=== PATIENT | female | born 1970 | race Caucasian/White ===

== ENCOUNTER 2016-07-18 21:52 | Observation (INO) | payer OTHER ==
[~2016-07-18] VITALS: Ht 170.2 cm; Wt 71.2 kg
[2016-07-18 23:31] LABS: HEMATOCRIT 38.3 % (36.0-46.0); MCH 28.2 PG (29.0-34.0); MCHC 32.1 G/DL (30.0-36.0); MCV 87.8 FL (83-99); MEAN PLAT.VOLUME 8.3 uM^3 (9.5-12.4); PLATELET COUNT 382 K/uL (156-360); RBC DIS.WIDTH-CV 12.6 % (11.8-14.6); RBC DIS.WIDTH-SD 40.7 % (39-53); RED BLOOD COUNT 4.36 M/uL (3.80-5.20); WHITE BLOOD COUNT 5.9 K/uL (4.1-10.2)
[2016-07-18 23:50] LABS: TROP-I INTERPRETATION NEGATIVE; TROPONIN-I < 0.01 ng/mL (0.0-0.30)
[2016-07-19] MEDS ORDERED: TRILEPTAL300 MG PO (00:48)
[2016-07-19] MEDS ORDERED: GABAPENTIN300 MG PO (00:48)
[2016-07-19] MEDS ORDERED: TRILEPTAL150 MG PO (00:49)
[2016-07-19] MEDS ORDERED: ADDERALL20 MG PO ×2 (00:49)
[2016-07-19] MEDS ORDERED: HYDROCORTISONE5 MG PO ×2 (00:49)
[2016-07-19] MEDS ORDERED: FORFIVO XL450 MG PO (00:49)
[2016-07-19] MEDS ORDERED: MELATONIN5 M1 PO (00:50)
[2016-07-19] MEDS ORDERED: COMBIVENT RESPIM4 GM IH (00:50)
[2016-07-19] MEDS ORDERED: SYMBICORT60 INHALAT IH (00:50)
[2016-07-19] MEDS ORDERED: ROBAXIN750 MG PO (00:51)
[2016-07-19] MEDS ORDERED: HYDROXYZINE HCL50 MG PO (00:51)
[2016-07-19] MEDS ORDERED: PROVENTIL HFA6.7 GM IH (00:51)
[2016-07-19 02:49] VITALS: BP 127/70
[2016-07-19 08:02] VITALS: BP 131/62
[2016-07-19 11:07] LABS: TROP-I INTERPRETATION NEGATIVE; TROPONIN-I < 0.01 ng/mL (0.0-0.30)
[2016-07-19 11:39] VITALS: BP 112/60
[2016-07-19] MEDS ORDERED: OXAYDO5 MG PO (15:36)
[2016-07-19 16:49] VITALS: BP 129/71
== END 2016-07-19 18:05 | disposition home or self-care (01) ==
LOC: EME 21:52 → EDOF 07-19 01:12 → 3EAST 07-19 02:35
PROVIDERS: Physician Assistant; Surgery
DX: S29.9XXA Unspecified injury of thorax, initial encounter (principal); S09.90XA Unspecified injury of head, initial encounter; S00.211A Abrasion of right eyelid and periocular area, initial encounter; W10.8XXA Fall (on) (from) other stairs and steps, initial encounter; M54.2 Cervicalgia; E27.1 Primary adrenocortical insufficiency; I10 Essential (primary) hypertension; J44.9 Chronic obstructive pulmonary disease, unspecified; G62.9 Polyneuropathy, unspecified; J45.909 Unspecified asthma, uncomplicated; G43.909 Migraine, unspecified, not intractable, without status migrainosus; F41.9 Anxiety disorder, unspecified; F31.9 Bipolar disorder, unspecified; K21.9 Gastro-esophageal reflux disease without esophagitis; F17.200 Nicotine dependence, unspecified, uncomplicated
CPT/HCPCS: 70160; 70450; 71020; 71120; 71250; 72125; 84484; 84702; 85027; 93005; 94640 76; 94760; 99202; 99281; 99284; G0378; J1170; J1720; J7030; Q0177

== ENCOUNTER 2016-11-20 18:51 | Emergency (ER) | payer OTHER ==
[~2016-11-20] VITALS: Ht 170.2 cm; Wt 70.1 kg
[~2016-11-20 18:51] MED LIST: ADDERALL20 MG PO; COMBIVENT RESPIM4 GM IH; FORFIVO XL450 MG PO; GABAPENTIN300 MG PO; HYDROCORTISONE5 MG PO; HYDROXYZINE HCL50 MG PO; MELATONIN5 M1 PO; OXAYDO5 MG PO; PROVENTIL HFA6.7 GM IH; ROBAXIN750 MG PO; SYMBICORT60 INHALAT IH; TRILEPTAL150 MG PO; TRILEPTAL300 MG PO
[2016-11-20 20:03] LABS: HEMATOCRIT 37.5 % (36.0-46.0); MCH 28.4 PG (29.0-34.0); MCHC 33.6 G/DL (30.0-36.0); MCV 84.7 FL (83-99); PLATELET COUNT 339 K/uL (156-360); RBC DIS.WIDTH-SD 37.5 % (39-53); RED BLOOD COUNT 4.43 M/uL (3.80-5.20); WHITE BLOOD COUNT 5.3 K/uL (4.1-10.2)
[2016-11-20 20:15] LABS: CHLORIDE 90 mEq/L (99-109); POTASSIUM 3.8 mEq/L (3.7-5.4); SODIUM 125 mEq/L (136-147)
[2016-11-20 20:17] LABS: GLUCOSE 139 mg/dL (70-99)
[2016-11-20 20:18] LABS: ANION GAP 10 MEQ/L (2-14)
[2016-11-20 20:19] LABS: TOTAL BILIRUBIN 0.3 mg/dL (0.0-1.0)
[2016-11-20 20:21] LABS: ALKALINE PHOSPHATASE 126 IU/L (3-129); GFR ESTIMATE (CALCULATED) > 59 mL/min/
[2016-11-20 20:22] LABS: UREA NITROGEN (BUN) 7 mg/dL (9-23)
[2016-11-20 20:24] LABS: LIPASE 8 U/L (1.0-51.0)
[2016-11-20 20:30] LABS: ADD MIUA? YES; BILIRUBIN NEGATIVE; BLOOD NEGATIVE; COLOR YELLOW ((YELLOW)); GLUCOSE (STRIP) NEGATIVE; KETONES NEGATIVE; LEUKOCYTES NEGATIVE; NITRITE NEGATIVE; PROTEIN (STRIP) 30; SPECIFIC GRAVITY 1.015 (1.000-1.030); UROBILINOGEN 0.2 MG/DL (0.2-1.0)
[2016-11-20 20:31] LABS: QUANTITATIVE HCG < 4.0 MIU/ML
[2016-11-20 20:45] LABS: BACTERIA RARE /HPF; EPITHELIAL CELLS RARE /HPF; MUCUS TRACE /LPF; UCUL ADDED? NO; WHITE BLOOD CELLS 0-5 /HPF (0-5)
[2016-11-20] MEDS ORDERED: ZOFRAN ODT4 MG PO (23:56)
[2016-11-21 00:09] VITALS: BP 144/92
== END 2016-11-21 00:10 | disposition home or self-care (01) ==
LOC: EME 18:51
DX: E27.2 Addisonian crisis (principal); E87.1 Hypo-osmolality and hyponatremia; R73.9 Hyperglycemia, unspecified; R11.2 Nausea with vomiting, unspecified; R42 Dizziness and giddiness; Z79.52 Long term (current) use of systemic steroids; R10.9 Unspecified abdominal pain; J44.9 Chronic obstructive pulmonary disease, unspecified; J45.909 Unspecified asthma, uncomplicated; Z90.49 Acquired absence of other specified parts of digestive tract; Z90.710 Acquired absence of both cervix and uterus; Z87.442 Personal history of urinary calculi
CPT/HCPCS: 80053; 81003; 83690; 84702; 85027; 99281; 99284; J1720; J2405; J7030

== ENCOUNTER 2017-07-06 17:18 | Emergency (ER) | payer OTHER ==
[~2017-07-06] VITALS: Ht 170.2 cm; Wt 72.3 kg
[~2017-07-06 17:18] MED LIST changes: +ZOFRAN ODT4 MG PO
[2017-07-06 17:56] LABS: HEMATOCRIT 35.1 % (36.0-46.0); HEMOGLOBIN 11.9 G/DL (11.9-15.5); MCHC 33.9 G/DL (30.0-36.0); MCV 85.4 FL (83-99); PLATELET COUNT 276 K/uL (156-360); RBC DIS.WIDTH-CV 12.1 % (11.8-14.6); RBC DIS.WIDTH-SD 38.1 % (39-53); RED BLOOD COUNT 4.11 M/uL (3.80-5.20); WHITE BLOOD COUNT 4.7 K/uL (4.1-10.2)
[2017-07-06 18:30] LABS: CHLORIDE 97 mEq/L (99-109); POTASSIUM 4.4 mEq/L (3.7-5.4); SODIUM 129 mEq/L (136-147)
[2017-07-06 18:32] LABS: GLUCOSE 104 mg/dL (70-99)
[2017-07-06 18:36] LABS: CREATININE 0.7 mg/dL (0.6-1.3); GFR ESTIMATE (CALCULATED) > 59 mL/min/
[2017-07-06 18:37] LABS: UREA NITROGEN (BUN) 9 mg/dL (9-23)
[2017-07-06 18:44] LABS: QUANTITATIVE HCG < 4.0 MIU/ML
[2017-07-06 18:53] LABS: APPEARANCE CLEAR ((CLEAR)); BILIRUBIN NEGATIVE; BLOOD NEGATIVE; COLOR YELLOW ((YELLOW)); GLUCOSE (STRIP) NEGATIVE; KETONES NEGATIVE; LEUKOCYTES NEGATIVE; NITRITE NEGATIVE; PROTEIN (STRIP) NEGATIVE; SPECIFIC GRAVITY 1.016 (1.000-1.030); UROBILINOGEN 0.2 MG/DL (0.2-1.0)
[2017-07-06 19:22] LABS: AMPHETAMINE PRESUMPTIVE POSITIVE (500 ng/mL); BARBITURATES NEGATIVE (200 ng/mL); BENZODIAZEPINES NEGATIVE (150 ng/mL); BUPRENORPHINE PRESUMPTIVE POSITIVE (10 ng/mL); COCAINE NEGATIVE (150 ng/mL); METHADONE NEGATIVE (200 ng/mL); METHAMPHETAMINE NEGATIVE (500 ng/mL); OPIATES (MORPHINE) NEGATIVE (100 ng/mL); OXYCODONE NEGATIVE (100 ng/mL); PHENCYCLIDINE NEGATIVE (25 ng/mL); PROPOXYPHENE NEGATIVE (300 ng/mL); THC CANNABINOIDS NEGATIVE (50 ng/mL); TRICYCLIC ANTIDEPRESSANTS NEGATIVE (300 ng/mL)
[2017-07-06 19:39] LABS: TROP-I INTERPRETATION NEGATIVE; TROPONIN-I 0.05 ng/mL (0.0-0.30)
[2017-07-06 19:48] LABS: CARBAMAZEPINE (TEGRETOL) < 2.0 MCG/ML (4.0-12.0)
[2017-07-06 20:18] VITALS: BP 152/88
== END 2017-07-06 20:25 | disposition home or self-care (01) ==
LOC: EME 17:18
PROVIDERS: Family Medicine
DX: R56.9 Unspecified convulsions (principal); F32.9 Major depressive disorder, single episode, unspecified; F41.9 Anxiety disorder, unspecified; Z88.0 Allergy status to penicillin; Z88.5 Allergy status to narcotic agent; Z88.6 Allergy status to analgesic agent; E27.1 Primary adrenocortical insufficiency
CPT/HCPCS: 80048; 80156; 81003; 84484; 84702; 84999; 85027; 93005; 99281; 99285; J2250; J7030

== ENCOUNTER 2017-11-20 17:06 | Inpatient (IN) | payer OTHER ==
[~2017-11-20] VITALS: Ht 170.2 cm; Wt 69.9 kg
[2017-11-20 17:58] LABS: BASOPHIL (%) 0.6 % (0-1); EOSINOPHIL (%) 0.8 % (0-5); EOSINOPHIL COUNT 0.1 K/uL (0-0.3); HEMATOCRIT 35.3 % (36.0-46.0); HEMOGLOBIN 12.6 G/DL (11.9-15.5); IMMATURE GRANULOCYTE (%) 0.4 % (0.0-0.7); LYMPHOCYTE COUNT 1.5 K/uL (1.0-2.8); MCH 29.9 PG (29.0-34.0); MCHC 35.7 G/DL (30.0-36.0); MCV 83.8 FL (83-99); MONOCYTE (%) 6.5 % (3-12); MONOCYTE COUNT 0.5 K/uL (0-0.8); NEUTROPHIL (%) 70.7 % (45-76); PLATELET COUNT 372 K/uL (156-360); RBC DIS.WIDTH-CV 12.8 % (11.8-14.6); RBC DIS.WIDTH-SD 38.9 % (39-53); RED BLOOD COUNT 4.21 M/uL (3.80-5.20); WHITE BLOOD COUNT 7.1 K/uL (4.1-10.2)
[2017-11-20 18:09] LABS: ALBUMIN 4.7 g/dL (3.2-4.8); CHLORIDE 88 mEq/L (99-109); POTASSIUM 3.9 mEq/L (3.7-5.4); SODIUM 122 mEq/L (136-147)
[2017-11-20 18:12] LABS: GLUCOSE 110 mg/dL (70-99); TOTAL PROTEIN 7.3 g/dL (6.4-8.3)
[2017-11-20 18:14] LABS: TOTAL BILIRUBIN 0.3 mg/dL (0.0-1.0)
[2017-11-20 18:17] LABS: ALKALINE PHOSPHATASE 93 IU/L (3-129); AST (GOT) 19 IU/L (2-34); CREATININE 0.7 mg/dL (0.6-1.3); DIRECT BILIRUBIN 0.1 mg/dL (0.0-0.3); GFR ESTIMATE (CALCULATED) > 59 mL/min/; UREA NITROGEN (BUN) 7 mg/dL (9-23)
[2017-11-20 18:18] LABS: ALT (GPT) 16 IU/L (3-49)
[2017-11-20 18:19] LABS: LIPASE 6 U/L (1.0-51.0)
[2017-11-20 18:21] LABS: TROP-I INTERPRETATION NEGATIVE; TROPONIN-I 0.05 ng/mL (0.0-0.30)
[2017-11-20 18:39] LABS: SERUM ETHYL ALCOHOL < 10 mg/dL
[2017-11-20 19:02] LABS: APPEARANCE CLOUDY ((CLEAR)); BILIRUBIN NEGATIVE; BLOOD MODERATE; COLOR YELLOW ((YELLOW)); GLUCOSE (STRIP) NEGATIVE; KETONES NEGATIVE; LEUKOCYTES MODERATE; NITRITE NEGATIVE; PROTEIN (STRIP) NEGATIVE; SPECIFIC GRAVITY 1.013 (1.000-1.030); UROBILINOGEN 0.2 MG/DL (0.2-1.0)
[2017-11-20 19:11] LABS: BACTERIA RARE /HPF; EPITHELIAL CELLS 1+ /HPF; MUCUS TRACE /LPF; UCUL ADDED? NO; WHITE BLOOD CELLS 0-5 /HPF (0-5)
[2017-11-20 19:14] LABS: AMPHETAMINE PRESUMPTIVE POSITIVE (500 ng/mL); BARBITURATES NEGATIVE (200 ng/mL); BENZODIAZEPINES NEGATIVE (150 ng/mL); BUPRENORPHINE NEGATIVE (10 ng/mL); COCAINE NEGATIVE (150 ng/mL); METHADONE NEGATIVE (200 ng/mL); METHAMPHETAMINE NEGATIVE (500 ng/mL); OPIATES (MORPHINE) NEGATIVE (100 ng/mL); OXYCODONE NEGATIVE (100 ng/mL); PHENCYCLIDINE NEGATIVE (25 ng/mL); PROPOXYPHENE NEGATIVE (300 ng/mL); THC CANNABINOIDS PRESUMPTIVE POSITIVE (50 ng/mL); TRICYCLIC ANTIDEPRESSANTS NEGATIVE (300 ng/mL)
[2017-11-20 21:49] LABS: CHLORIDE 91 mEq/L (99-109); POTASSIUM 3.8 mEq/L (3.7-5.4); SODIUM 126 mEq/L (136-147)
[2017-11-20 21:50] LABS: GLUCOSE 97 mg/dL (70-99)
[2017-11-20 21:54] LABS: CREATININE 0.7 mg/dL (0.6-1.3); GFR ESTIMATE (CALCULATED) > 59 mL/min/
[2017-11-20 21:55] LABS: UREA NITROGEN (BUN) 6 mg/dL (9-23)
[2017-11-20 22:35] VITALS: BP 131/78
[2017-11-21 03:59] VITALS: BP 104/75
[2017-11-21 06:03] LABS: HEMATOCRIT 35.9 % (36.0-46.0); HEMOGLOBIN 12.3 G/DL (11.9-15.5); MCH 29.2 PG (29.0-34.0); MCHC 34.3 G/DL (30.0-36.0); MCV 85.3 FL (83-99); PLATELET COUNT 333 K/uL (156-360); RBC DIS.WIDTH-SD 40.2 % (39-53); RED BLOOD COUNT 4.21 M/uL (3.80-5.20); WHITE BLOOD COUNT 4.7 K/uL (4.1-10.2)
[2017-11-21 06:23] LABS: ALBUMIN 4.2 G/DL (3.2-4.8); ALKALINE PHOSPHATASE 84 IU/L (3-129); ALT (GPT) 12 IU/L (3-49); AST (GOT) 17 IU/L (2-34); CHLORIDE 94 MEQ/L (99-109); CREATININE 0.6 MG/DL (0.6-1.3); GFR ESTIMATE (CALCULATED) > 59 mL/min/; GLUCOSE 89 mg/dL (70-99); POTASSIUM 4.5 MEQ/L (3.7-5.4); SODIUM 128 MEQ/L (136-147); TOTAL BILIRUBIN 0.3 MG/DL (0.0-1.0); TOTAL PROTEIN 6.3 G/DL (6.4-8.3); UREA NITROGEN (BUN) 5 mg/dL (9-23)
[2017-11-21 06:56] VITALS: BP 121/77
[2017-11-21 11:34] VITALS: BP 139/82
[2017-11-21] MEDS ORDERED: POTASSIUM-9999 MG PO (12:55)
[2017-11-21] MEDS ORDERED: L-LYSINE500 M1 PO (12:55)
[2017-11-21] MEDS ORDERED: HAIR, SKIN & N1 EAC1 PO (12:55)
[2017-11-21] MEDS ORDERED: OXTELLAR XR150 MG PO (13:00)
[2017-11-21 15:44] VITALS: BP 133/74
[2017-11-21 19:17] VITALS: BP 133/96
[2017-11-22 00:03] VITALS: BP 91/52
[2017-11-22 04:02] VITALS: BP 97/56
[2017-11-22 06:10] LABS: BASOPHIL (%) 0.7 % (0-1); HEMATOCRIT 38.1 % (36.0-46.0); HEMOGLOBIN 12.8 G/DL (11.9-15.5); IMMATURE GRANULOCYTE (%) 0.5 % (0.0-0.7); LYMPHOCYTE (%) 39.6 % (15-42); LYMPHOCYTE COUNT 1.6 K/uL (1.0-2.8); MCH 28.9 PG (29.0-34.0); MCHC 33.6 G/DL (30.0-36.0); MONOCYTE (%) 10.4 % (3-12); MONOCYTE COUNT 0.4 K/uL (0-0.8); NEUTROPHIL (%) 47.8 % (45-76); NEUTROPHIL COUNT 1.9 K/uL (1.8-6.4); PLATELET COUNT 361 K/uL (156-360); RBC DIS.WIDTH-CV 13.2 % (11.8-14.6); RBC DIS.WIDTH-SD 41.5 % (39-53); RED BLOOD COUNT 4.43 M/uL (3.80-5.20)
[2017-11-22 06:39] LABS: CHLORIDE 96 MEQ/L (99-109); CREATININE 0.7 MG/DL (0.6-1.3); GFR ESTIMATE (CALCULATED) > 59 mL/min/; GLUCOSE 97 mg/dL (70-99); POTASSIUM 4.6 MEQ/L (3.7-5.4); SODIUM 132 MEQ/L (136-147); UREA NITROGEN (BUN) 8 mg/dL (9-23); URIC ACID 1.9 mg/dL (3.1-9.2)
[2017-11-22 07:33] VITALS: BP 110/53
[2017-11-22 15:48] VITALS: BP 114/69
[2017-11-22 23:58] VITALS: BP 115/77
[2017-11-23 06:18] LABS: CHLORIDE 95 MEQ/L (99-109); CREATININE 0.6 MG/DL (0.6-1.3); GFR ESTIMATE (CALCULATED) > 59 mL/min/; GLUCOSE 96 mg/dL (70-99); POTASSIUM 4.2 MEQ/L (3.7-5.4); SODIUM 128 MEQ/L (136-147); UREA NITROGEN (BUN) 7 mg/dL (9-23)
[2017-11-23 07:21] VITALS: BP 110/65
[2017-11-23] MEDS ORDERED: SODIUM CHLORIDE1 G1 PO (10:17)
[2017-11-23] MEDS ORDERED: FLUOXETINE HCL20 MG PO (10:17)
[2017-11-23] MEDS ORDERED: OXCARBAZEPINE300 MG PO (10:17)
[2017-11-23] MEDS ORDERED: BUPROPION XL300 MG PO (10:17)
[2017-11-23] MEDS ORDERED: VALIUM2 MG PO (11:10)
[2017-11-23] MEDS ORDERED: ZOFRAN4 MG PO (11:10)
== END 2017-11-23 13:28 | disposition home or self-care (01) | DRG 100 ==
LOC: EME 17:06 → EDOF 20:51 → 5SOUTH 20:51 → ENRESERV 20:52 → CANRESERV 20:52 → ENRESERV 21:28 → 5SOUTH 22:38
PROVIDERS: Emergency Medicine; Internal Medicine; Internal Medicine Nephrology; Physician Assistant Medical
DX: R56.9 Unspecified convulsions (principal); E87.1 Hypo-osmolality and hyponatremia; T43.295A Adverse effect of other antidepressants, initial encounter; G93.40 Encephalopathy, unspecified; S01.551A Open bite of lip, initial encounter; X58.XXXA Exposure to other specified factors, initial encounter; R44.3 Hallucinations, unspecified; F31.30 Bipolar disorder, current episode depressed, mild or moderate severity, unspecified; F41.1 Generalized anxiety disorder; E27.1 Primary adrenocortical insufficiency; J44.9 Chronic obstructive pulmonary disease, unspecified; I10 Essential (primary) hypertension; G89.29 Other chronic pain; M54.2 Cervicalgia; G62.9 Polyneuropathy, unspecified; G43.909 Migraine, unspecified, not intractable, without status migrainosus; K21.9 Gastro-esophageal reflux disease without esophagitis; Z85.41 Personal history of malignant neoplasm of cervix uteri; Z87.891 Personal history of nicotine dependence; Z91.5 Personal history of self-harm
CPT/HCPCS: 70450; 80048; 80048 91; 80053; 80076; 81003; 82248; 83605; 83690; 83735; 83880; 83930; 83935; 84300; 84484; 84550; 84999; 85025; 85027; 94640; 94799; 95819; 99281; 99284; G0480; J0696; J1644; J2405; J7030